=== PATIENT | male | born 1960 | race Caucasian/White ===

== ENCOUNTER → 2024-08-18 10:18 | Outpatient (REF) | payer OTHER, SELFPAY | LOC: HWRAD 10:18 | PROVIDERS: ATTENDING PHYSICIAN Chiropractor; FAMILY PHYSICIAN Family Medicine | DX: S13.4XXA Sprain of ligaments of cervical spine, initial encounter (principal); M62.838 Other muscle spasm; S23.3XXA Sprain of ligaments of thoracic spine, initial encounter; M62.830 Muscle spasm of back | CPT/HCPCS: 72050; 72072 ==